=== PATIENT | female | born 1970 | race Caucasian/White ===

== ENCOUNTER 2021-06-14 20:20 | Emergency (ER) | payer MEDICAID, SELFPAY ==
--- NOTE | ~2021-06-14 | XR_ITS ---
EXAMINATION: XR THORACOLUMBAR SPINE CLINICAL INFORMATION: Back pain COMPARISON: None TECHNIQUE: AP and lateral views. FINDINGS: Alignment throughout the thoracic spine appears anatomic. Vertebral body heights are maintained. Intervertebral disc spaces appear preserved. No acute fracture is seen. XR/XR thoracic spine 2V IMPRESSION: No acute findings identified.
[2021-06-14 20:27] VITALS: BP 141/80; PULSE 90; O2SAT 97
[2021-06-14 21:55] VITALS: BP 144/91; PULSE 78; RESP 18; O2SAT 98; BMI 43.4
--- NOTE | 2021-06-14 23:37 | ED_ITS ---
HPI - Back Pain/Injury General Chief Complaint: Back Pain/Injury Stated Complaint: lower back pain/migraine Time Seen by Provider: 06/14/21 23:25 Source: patient and EMS Mode of arrival: EMS Limitations: no limitations History of Present Illness HPI Narrative: 50-year-old female came in for evaluation of acute on chronic back pain. Patient had acute position related back injury, patient received physical therapy, patient declined any injury today her falling or heavy lifting, started to have mid back pain started today, patient declined any urinary or stool incontinence, patient declined any fever, no history of IV drug abuse. Patient declined any weakness or numbness. Related Data Previous Rx's Medication Instructions Recorded ibuprofen 800 mg tablet 800 mg PO TID PRN #20 tab 06/14/21 Allergies Allergy/AdvReac Type Severity Reaction Status Date / Time mushroom Allergy Unknown Verified 06/14/21 23:36 Penicillins Allergy Unknown Verified 06/14/21 23:34 Review of Systems Review of Systems: All other systems are reviewed and are negative Constitutional: Reports as per HPI and Reports no additional constitutional complaints Eyes: Reports as per HPI and Reports no additional eye complaints Reports system reviewed and no additional complaints, except as documented Cardiovascular: Reports as per HPI and Reports no additional cardiovascular complaints Respiratory: Reports as per HPI and Reports no additional respiratory complaints Gastrointestinal: Reports as per HPI and Reports no additional gastrointestinal complaints Genitourinary: Reports no additional female genitourinary complaints Musculoskeletal: Reports no additional musculoskeletal complaints Skin/Breast: Reports system reviewed and no additional complaints, except as docu Psychiatric: Reports no additional psychiatric complaints Endocrine: Reports no additional endocrine complaints Hematologic/Lymphatic: Reports no additional hematologic/lymphatic complaints Allergic/Immunologic: Reports no additional allergic/immunologic complaints Reports system reviewed and no additional complaints, except as documented and Reports Abnormal speech present [facility] Social History Social History Advance Directives: No Advance Directives Information Provided: No Patient : No Physical Exam Vital Signs: Vital Signs: Last Vital Signs Temp 98.7 F 06/15/21 00:25 Pulse 81 06/15/21 00:25 Resp 18 06/15/21 00:25 BP 155/92 H 06/15/21 00:25 Pulse Ox 97 06/15/21 00:25 Body Mass Index 43.4 Vital signs have been reviewed as appeared to be correct. Blood pressure normal. Heart rate normal. Respiration rate normal. Temperature normal. Oxygen saturation normal. Appearance: Alert. Oriented X3. No acute distress. Head: Normal external exam. Normocephalic. Atraumatic. No Lundberg signs noted. No raccoon eyes noted Eyes: PERRLA. EOMI. Conjunctiva and sclera normal. Eyelids normal. ENT: TM's Normal. Pharynx normal. Uvula midline. Moist mucous membranes. No trismus noted. No drooling noted. No muffled voice noted. Neck: Normal inspection. Neck supple. FROM. No adenopathy. Thyroid Normal. No meningeal signs. No neck mass noted. CVS: Normal heart rate and rhythm. Heart sound normal. No murmurs noted. Pulses normal throughout. Respiratory: No respiratory distress. Painless inspiration. Breath sounds normal. No wheezes/rales/rhonchi noted. Chest nontender. No accessory muscle usage noted or decreased air movement noted. Abdomen: Soft and nontender. Bowel sounds normal in all 4 quadrants. No dis tention noted. No organomegaly noted. No visible injury noted. Back: No CVA tenderness. Full range of motion noted. No point of tenderness Skin: Skin warm and dry. Normal skin color. Normal skin turgor. No rashes/lesions/lacerations noted. Extremities: No lower extremity edema. Extremities exhibit normal range of motion. Extremities nontender. Neuro: Oriented X 3. Cranial nerve exam: II-XII are grossly intact No motor deficit. No sensory deficit. Reflexes normal. Perianal sensation is intact Course Course Course Narrative: Assessment and plan. Acute on chronic back pain due to his job related injury, patient is known to have multiple levels of disc herniation reportedly on previous MRI patient had a different state, no risk for epidural abscesses, patient's pain is better after Percocet and ibuprofen, patient was instructed to follow-up with her PCP. MDM - Back Pain/Injury Imaging Data thoracic xrays: Radiologist's impression: No acute findings identified.? Discharge Plan Discharge Clinical Impression: Thoracic back pain Patient Disposition: Home, Self-Care Instructions: Back Pain (ED) Prescriptions: New ibuprofen 800 mg tablet 800 mg PO TID PRN (Reason: pain) Qty: 20 RF: 0 Referrals: Physician,Unknown J [Primary Care Provider] - 2 days
[2021-06-14] MEDS: Ibuprofen 600 MG TABLET PO (23:45)
[2021-06-14] MEDS: oxyCODONE HCl Immed Release 5 MG TABLET PO (23:45)
[2021-06-15 00:25] VITALS: BP 155/92; PULSE 81; RESP 18; TEMP 37.1; O2SAT 97
== END 2021-06-15 00:58 | disposition home or self-care (01) ==
PROVIDERS: Emergency Provider Emergency Medicine
DX: M54.6 Pain in thoracic spine (principal); G89.29 Other chronic pain
CPT/HCPCS: 72070; 99283